=== PATIENT | female | born 1945 | race Caucasian/White ===

== ENCOUNTER → 2017-11-07 | Outpatient (CLI) | payer MEDICARE, BC ==
--- NOTE | 2017-11-08 15:03 | RADIOLOGY IMAGING REPORT ---
[place] [facility] [place] LIZETTE HAYES : [id number] MR: [id number] V: [id number] EXAM DATE: [id number] ORDERING PHYSICIAN: MENA WRAY TECHNOLOGIST: Judy Ashford PROCEDURE:BILATERAL DIAGNOSTIC DIGITAL MAMMOGRAM WITH CAD ASSISTED INTERPRETATION & 3D TOMOSYNTHESIS COMPARISON:Prior mammograms 11/03/15, 06/24/14, 04/28/13, 12/21/11, 11/14/11. INDICATIONS:Palpable lump 4 o'clock position of the Right breast. FINDINGS: There is predominant fatty replacement throughout the breasts. The parenchymal pattern has remained stable allowing for difference in mammographic technique & patient positioning. There is no evidence of malignant appearing mass, malignant appearing calcifications or other secondary sign of malignancy in either breast. DIAGNOSTIC CATEGORY 2--BENIGN FINDING. RECOMMENDATIONS: CLINICAL EVALUATION. ROUTINE MAMMOGRAM AND CLINICAL EVALUATION. IMPRESSION: BIRADS 2: Benign finding. No significant abnormality is seen. Clinical follow-up recommended for patient's palpable findings. Please see Today's Right breast Ultrasound dictation. Dictated by: Ibis Nuñez M.D. on 11/07/2017 at 16:44 Transcribed by: STEVIE on 11/08/2017 at 8:10 Approved by: Ibis Nuñez M.D. on 11/08/2017 at 15:02 [facility]
--- NOTE | 2017-11-08 15:03 | RADIOLOGY IMAGING REPORT ---
FACILITY: [facility] PATIENT NAME: LIZETTE HAYES : [id number] MR: [id number] V: [id number] EXAM DATE: [id number] ORDERING PHYSICIAN: MENA WRAY TECHNOLOGIST: Edwina Celis RDMS PROCEDURE:US RIGHT BREAST COMPARISON:None. INDICATIONS:Lump 4 o'clock position of the Right breast for 6-8 weeks. FINDINGS: The Right breast was imaged in the 3, 4, & 5 o'clock positions in the location of patient's palpable findings revealing no sonographic abnormality. No mammographic abnormality was identified in Today's mammogram therefore clinical follow-up is recommended. DIAGNOSTIC CATEGORY 2--BENIGN FINDING. RECOMMENDATIONS: CLINICAL EVALUATION. ROUTINE MAMMOGRAM AND CLINICAL EVALUATION. IMPRESSION: BIRADS 2: Benign finding. No mammographic or sonographic abnormality identified to account for patient's palpable findings in the 4 o' clock position of the Right breast therefore clinical follow-up recommended. Of note a negative mammogram or Ultrasound report should not preclude biopsy of the clinically suspicious lesion. Dictated by: Ibis Nuñez M.D. on 11/07/2017 at 16:42 Transcribed by: STEVIE on 11/08/2017 at 8:16 Approved by: Ibis Nuñez M.D. on 11/08/2017 at 15:02 [facility]
== END ==
LOC: MAMO 02:16
PROVIDERS: ATTEND Nurse Practitioner Psychiatric/Mental Health
DX: R92.2 Inconclusive mammogram (principal); N63.0 Unspecified lump in unspecified breast
CPT/HCPCS: 77062; 77066